=== PATIENT | female | born 1980 | race American Indian/Alaskan Native ===

== ENCOUNTER 2017-12-09 06:49 | Emergency (ER) | payer OTHER ==
[2017-12-09] MEDS ORDERED: ZOFRAN IV ONE (07:21)
[2017-12-09] MEDS ORDERED: NACL 0.9% 1000 ML 1,000 ML IV ONE (07:21)
[2017-12-09 07:52] LABS: Hematocrit 42.3 % (30.3-42.9); Hemoglobin 14.4 gm/dl (10.1-14.3); Mean Corpuscular HGB Conc 34 % (30-34); Mean Corpuscular Hemoglobin 35 pg (28-32); Mean Corpuscular Volume 102 fl (79-97); Platelet Count 309 K/mm3 (140-440); Red Blood Count 4.17 M/mm3 (3.65-5.03); Red Cell Distribution Width 13.9 % (13.2-15.2)
[2017-12-09] MEDS ORDERED: MORPHINE IV ONE ×2 (07:59→10:00)
[2017-12-09 08:13] LABS: Alanine Aminotransferase 19 units/L (7-56); Albumin 4.4 g/dL (3.9-5); BUN/Creatinine Ratio 20; Bilirubin,Direct 0.2 mg/dL (0-0.2); Blood Urea Nitrogen 12 mg/dL (7-17); Calcium 9.5 mg/dL (8.4-10.2); Hemolysis Index 16
[2017-12-09 08:33] LABS: Basophils % (Manual) 0 % (0.0-1.8); Eosinophils % (Manual) 0 % (0.0-4.3); Platelet Estimate Consistent w Auto; RBC Morphology Normal; Total Cells Counted 100
--- NOTE | 2017-12-09 09:56 | Cat Scan Report ---
CT ABDOMEN PELVIS WITH CONTRAST: HISTORY: abdominal pain. COMPARISON: none. TECHNIQUE: Helical CT in 1.25mm intervals following IV contrast. Sagittal and coronal reconstructions. FINDINGS: Lung bases: Normal. Liver: Normal. Biliary system: Normal. Pancreas: Normal. Spleen: Normal. Kidneys/ureters/bladder: Normal. Adrenal glands: Normal. Aorta: Normal. Intestines: Normal. Appendix: Normal. Pelvic viscera: Normal. Ascites: None. Adenopathy: None. Musculoskeletal: Normal. IMPRESSION: Unremarkable CT scan of the abdomen and pelvis with contrast.
[2017-12-09] MEDS ORDERED: MORPHINE ONE (10:38)
[2017-12-09] MEDS ORDERED: REGLAN IV ONE (11:11)
[2017-12-09] MEDS ORDERED: BENTYL IM ONE (11:11)
--- NOTE | 2017-12-09 11:59 | Emergency Department Report ---
Vomiting/Diarrhea - HPI Chief Complaint: Abdominal Pain Stated Complaint: ABD PAIN Time Seen by Provider: 12/09/17 11:06 Duration: 2 Days Severity: moderate Nausea/Vomiting Severity: Moderate Diarrhea Severity: Moderate Pain Location: Generalized Pain Severity: Moderate Symptoms: Yes Watery Diarrhea, No Bloody diarrhea, No Fever, No Able to Tolerate Fluids, No Recent Unusual Foods, No Recent Untreated Water, No Recent use of Antibiotics, No Family w/ Similar Symptoms, No Contacts w/ Similar Symptoms, No Rash, No Hematuria, No Recent URI Symptoms Other History: She is a 37-year-old [place]ese female with no significant past medical history is presenting with nausea vomiting diarrhea. Patient states that this happens occasionally every few years. Patient denies any fever at this time or flulike symptoms. ED Review of Systems ROS: Stated complaint: ABD PAIN Other details as noted in HPI Comment: All other systems reviewed and negative Constitutional: denies: chills, fever Eyes: denies: eye pain, eye discharge, vision change ENT: denies: ear pain, throat pain Respiratory: denies: cough, shortness of breath, wheezing Cardiovascular: denies: chest pain, palpitations Endocrine: no symptoms reported Gastrointestinal: nausea, vomiting, diarrhea. denies: abdominal pain Genitourinary: denies: urgency, dysuria, discharge Musculoskeletal: denies: back pain, joint swelling, arthralgia Skin: denies: rash, lesions Neurological: denies: headache, weakness, paresthesias Psychiatric: denies: anxiety, depression Hematological/Lymphatic: denies: easy bleeding, easy bruising ED Past Medical Hx - Past Medical History Additional medical history: Gastritis - Social History Smoking Status: Never Smoker Substance Use Type: None - Medications Home Medications: Home Medications Medication Instructions Recorded Confirmed Last Taken Type Dicyclomine [Bentyl] 20 mg PO QID #12 tablet 12/09/17 Unknown Rx Diphenoxylate HCl/Atropine 1 each PO DAILY #5 tablet 12/09/17 Unknown Rx [Lomotil 2.5-0.025 mg Tablet] Ondansetron [Zofran Odt] 4 mg PO Q8HR PRN 10 Days 12/09/17 Unknown Rx tab.rapdis Vomiting Diarrhea Exam - Exam General: Vital signs noted. No distress. Alert and acting appropriately. HEENT: Yes Moist Mucous Membranes, No Pharyngeal Erythema, No Pharyngeal Exudates, No Rhinorrhea, No Conjuctival Injection, No Frontal Tenderness, No Maxillary Tenderness Neck: No Adenopathy, No Rigidity Lungs: Yes Clear Lung Sounds, Yes Good Air Exchange, No Wheezes, No Stridor, No Cough, No Nasal Flaring, No Retractions, No Use of Accessory Muscles Heart exam: Regular: Yes, Murmur: No, Tachycardia: No Abdomen: Tenderness: Yes (mild diffuse tenderness there is no rebound or guarding or rigidity), Peritoneal Signs: No, Distention: No, Hyperactive Bowel sounds: No Skin exam: Rash: No, Edema: No, Normal turgor: Yes Neurologic: Alert and oriented, no deficits. Musculoskeletal: Unremarkable. ED Course Vital Signs 12/09/17 12/09/17 07:22 11:30 Temperature 98.3 F 98.8 F Pulse Rate 62 82 Respiratory 18 Rate Blood Pressure 116/44 Blood Pressure 135/61 [Left] O2 Sat by Pulse 100 99 Oximetry ED Medical Decision Making - Lab Data Result diagrams: 12/09/17 07:30 12/09/17 07:30 - Radiology Data Radiology results: report reviewed CT abdomen and pelvis unremarkable - Medical Decision Making Patient was given Zofran and Reglan for nausea which has now improved. Patient was given IV hydration and is feeling better we discharged home. Laboratory studies are unremarkable except for a mild leukocytosis of 16 she most likely secondary to de-margination of the patient was actively vomiting at the time. Blood was drawn Critical care attestation.: If time is entered above; I have spent that time in minutes in the direct care of this critically ill patient, excluding procedure time. ED Disposition Clinical Impression: Viral gastroenteritis Disposition: -01 TO HOME OR SELFCARE Is pt being admited?: No Does the pt Need Aspirin: No Condition: Stable Instructions: Abdominal Pain (ED), Gastroenteritis (ED) Prescriptions: Dicyclomine [Bentyl] 20 mg PO QID #12 tablet Diphenoxylate HCl/Atropine [Lomotil 2.5-0.025 mg Tablet] 1 each PO DAILY #5 tablet Ondansetron [Zofran Odt] 4 mg PO Q8HR PRN 10 Days tab.rapdis PRN Reason: Nausea Referrals: BERNARDO SERRANO MD [Staff Physician] - 3-5 Days
[2017-12-09 13:05] VITALS: BP 107/55
== END 2017-12-09 13:07 | disposition home or self-care (01) ==
LOC: ED 06:49
DX: A08.4 Viral intestinal infection, unspecified (principal)
CPT/HCPCS: 36415; 74177; 80048; 80074; 82150; 83690; 84703; 85007; 85025; 96361; 96372; 96374; 96375; 96376; 99284; J0500; J2270; J2405; J2765; J7030; Q9967

== ENCOUNTER 2018-01-18 00:53 | Inpatient (IN) | payer OTHER ==
[2018-01-18] MEDS ORDERED: ZOFRAN ONE ×2 (01:38→08:31)
[2018-01-18] MEDS ORDERED: ZOFRAN IV ONE (01:40)
[2018-01-18 02:11] LABS: Basophils # (Auto) 0.1 K/mm3 (0.0-0.1); Basophils % (Auto) 0.5 % (0.0-1.8); Eosinophils # (Auto) 0.1 K/mm3 (0.0-0.4); Eosinophils % (Auto) 0.3 % (0.0-4.3); Hematocrit 45.6 % (30.3-42.9); Hemoglobin 15.7 gm/dl (10.1-14.3); Lymphocytes # (Auto) 1.5 K/mm3 (1.2-5.4); Lymphocytes % (Auto) 9.1 % (13.4-35.0); Mean Corpuscular HGB Conc 35 % (30-34); Mean Corpuscular Hemoglobin 34 pg (28-32); Mean Corpuscular Volume 100 fl (79-97); Monocytes # (Auto) 0.9 K/mm3 (0.0-0.8); Monocytes % (Auto) 5.6 % (0.0-7.3); Platelet Count 346 K/mm3 (140-440); Red Blood Count 4.58 M/mm3 (3.65-5.03); Red Cell Distribution Width 13.8 % (13.2-15.2)
[2018-01-18 02:17] LABS: Alanine Aminotransferase 12 units/L (7-56); Albumin 4.5 g/dL (3.9-5); BUN/Creatinine Ratio 10; Blood Urea Nitrogen 7 mg/dL (7-17); Hemolysis Index 16
[2018-01-18] MEDS ORDERED: REGLAN IV ONE (03:13)
[2018-01-18] MEDS ORDERED: BENADRYL IV ONE (03:13)
[2018-01-18] MEDS ORDERED: DILAUDID IV ONE (03:13)
[2018-01-18] MEDS ORDERED: NACL 0.9% 1000 ML 1,000 ML IV ONE (03:14)
[2018-01-18] MEDS ORDERED: PROTONIX IV ONE ×2 (03:15→07:32)
--- NOTE | 2018-01-18 03:23 | Emergency Department Report ---
ED Abdominal Pain HPI - General Chief Complaint: Abdominal Pain Stated Complaint: ABD PAIN/VOMITING Time Seen by Provider: 01/18/18 03:10 Source: patient Mode of arrival: Ambulatory Limitations: No Limitations - History of Present Illness Initial Comments: 37-year-old past medical history of Crohn's and gastritis presents to the hospital with complaint of abdominal pain and vomiting 1 day. Patient complains of constant severe 10/10 sticking stabbing pain to the epigastric with pediatric episodes of vomiting. Patient was evaluated at [facility] ED yesterday and prescribed several medications but unable to keep them down. Patient has had problems with intermittent abdominal pain and vomiting episodes since 1998. Patient will go several years without exacerbations then have years with frequent exacerbations. Her GI doctor Dr. Lima is currently working her up for gastroparesis. Patient had a recent endoscopy and is scheduled for a colonoscopy on the . No reports of fever, melena, diarrhea , hematochezia, or hematemesis. Patient was also here 1 month ago for similar symptoms and had an unremarkable CT abdomen and pelvis at that time. No imaging was performed last night at [place]. She is currently on prednisone, promethazine, omeprazole, and Bentyl as needed for pain. - Related Data Previous Rx's Medication Instructions Recorded Last Taken Type Dicyclomine [Bentyl] 20 mg PO QID #12 tablet 12/09/17 Unknown Rx Diphenoxylate HCl/Atropine 1 each PO DAILY #5 tablet 12/09/17 Unknown Rx [Lomotil 2.5-0.025 mg Tablet] Ondansetron [Zofran Odt] 4 mg PO Q8HR PRN 10 Days 12/09/17 Unknown Rx tab.rapdis Allergies Allergy/AdvReac Type Severity Reaction Status Date / Time No Known Allergies Allergy Unverified 12/09/17 07:20 ED Review of Systems ROS: Stated complaint: ABD PAIN/VOMITING Other details as noted in HPI Comment: All other systems reviewed and negative Other: Constitutional: Positive weight loss secondary to by mouth intolerance Eyes: No eye pain visual changes or discharge ENT: No ear pain or throat pain Neck: Denies pain Respiratory: Denies cough wheezing shortness of breath Cardiovascular: Denies chest pain, palpitations, syncope GI: As per HPI : Denies dysuria Musculoskeletal: Denies back pain, joint swelling Skin: Denies rash, lesions, erythema Neurologic: Denies headache, numbness, weakness Psychiatric: Denies suicidal ideation, hallucinations ED Past Medical Hx - Past Medical History Previous Medical History?: Yes Additional medical history: Gastritis, Crohn's - Surgical History Past Surgical History?: No - Social History Smoking Status: Never Smoker Substance Use Type: None - Medications Home Medications: Home Medications Medication Instructions Recorded Confirmed Last Taken Type Dicyclomine [Bentyl] 20 mg PO QID #12 tablet 12/09/17 Unknown Rx Diphenoxylate HCl/Atropine 1 each PO DAILY #5 tablet 12/09/17 Unknown Rx [Lomotil 2.5-0.025 mg Tablet] Ondansetron [Zofran Odt] 4 mg PO Q8HR PRN 10 Days 12/09/17 Unknown Rx tab.rapdis ED Physical Exam - General Limitations: No Limitations - Other Other exam information: General: Positive distress secondary to pain patient is writhing around the bed Head exam: Atraumatic, normocephalic Eyes exam: Normal appearance, nonicteric sclerae ENT: Moist mucous membrane, normal oropharynx Neck exam: Normal inspection Respiratory exam: Clear to auscultation bilateral, no wheezes, rales, crackles Cardiovascular: Normal rate and rhythm, normal heart sounds Abdomen: Soft, nondistended, upper abdominal tenderness with palpation, no bowel sounds, no rebound or guard Extremity: Full range of motion normal inspection no deformity Back: Normal Inspection, full range of motion, no tenderness Neurologic: Alert, oriented x3, cranial nerves intact, no motor or sensory deficit Psychiatric: Anxious, tearful Skin: Warm, dry, intact ED Course Vital Signs 01/18/18 01/18/18 01:28 05:00 Temperature 98.4 F 98.2 F Pulse Rate 68 82 Respiratory 20 20 Rate Blood Pressure 126/63 Blood Pressure 107/54 [Right] O2 Sat by Pulse 100 100 Oximetry ED Medical Decision Making - Lab Data Result diagrams: 01/18/18 01:37 01/18/18 01:37 Lab Results 01/18/18 01/18/18 01/18/18 Range/Units 01:37 01:37 03:17 WBC 16.8 H (4.5-11.0) K/mm3 RBC 4.58 (3.65-5.03) M/mm3 Hgb 15.7 H (10.1-14.3) gm/dl Hct 45.6 H (30.3-42.9) % MCV 100 H (79-97) fl MCH 34 H (28-32) pg MCHC 35 H (30-34) % RDW 13.8 (13.2-15.2) % Plt Count 346 (140-440) K/mm3 Lymph % (Auto) 9.1 L (13.4-35.0) % [place] % (Auto) 5.6 (0.0-7.3) % Eos % (Auto) 0.3 (0.0-4.3) % Baso % (Auto) 0.5 (0.0-1.8) % Lymph # 1.5 (1.2-5.4) K/mm3 [place] # 0.9 H (0.0-0.8) K/mm3 Eos # 0.1 (0.0-0.4) K/mm3 Baso # 0.1 (0.0-0.1) K/mm3 Seg Neutrophils % 84.5 H (40.0-70.0) % Seg Neutrophils # 14.2 H (1.8-7.7) K/mm3 Sodium 136 L (137-145) mmol/L Potassium 4.3 (3.6-5.0) mmol/L Chloride 97.6 L (98-107) mmol/L Carbon Dioxide 20 L (22-30) mmol/L Anion Gap 23 mmol/L BUN 7 (7-17) mg/dL Creatinine 0.7 (0.7-1.2) mg/dL Estimated GFR > 60 ml/min BUN/Creatinine Ratio 10 % Glucose 107 H (65-100) mg/dL Calcium 10.0 (8.4-10.2) mg/dL Total Bilirubin 0.60 (0.1-1.2) mg/dL AST 17 (5-40) units/L ALT 12 (7-56) units/L Alkaline Phosphatase 70 (35-129) units/L Total Protein 7.6 (6.3-8.2) g/dL Albumin 4.5 (3.9-5) g/dL Albumin/Globulin Ratio 1.5 % HCG, Qual Negative (Negative) - Radiology Data Radiology results: report reviewed Read by radiologist ct abdomen and pelvis IV contrast: No acute findings - Medical Decision Making Patient is repeated negative CAT scans but continues to have significant abdominal pain with vomiting and by mouth intolerance. Patient was just discharged yesterday with by mouth meds was unable to tolerate them. Pain improved with Dilaudid, Benadryl, and Reglan in the ED. IV fluids initiated. Patient will be admitted to the hospital for further treatment and stabilization of symptoms and she failed outpatient treatment. - Differential Diagnosis gastroparesis, gastritis, pancreatitis, hepatitis, biliary colic Critical Care Time: No Critical care attestation.: If time is entered above; I have spent that time in minutes in the direct care of this critically ill patient, excluding procedure time. ED Disposition Clinical Impression: Intractable vomiting, Epigastric pain, Failure of outpatient treatment Disposition: OP ADMIT IP TO THIS HOSP Is pt being admited?: Yes Condition: Stable Time of Disposition: 05:56 (Dr Gann/hosp)
--- NOTE | 2018-01-18 04:38 | Cat Scan Report ---
FINAL REPORT EXAM: CT ABDOMEN PELVIS W CON HISTORY: n,v, epigstric pain TECHNIQUE: CT images are acquired through the Abdomen and Pelvis arterial and delayed phases following intravenous administration of contrast. Transaxial, coronal and sagittal reformations are provided. PRIORS: 12/09/2017 FINDINGS: Partially visualized intrathoracic contents are unremarkable. The liver, gallbladder, pancreas, spleen, and adrenal glands are unremarkable. Kidneys show no worrisome lesions, hydronephrosis, or calculi. The ureters are normal in course and caliber, and are both well opacified on delayed excretory phase imaging. There is no urothelial thickening or ureteral filling defect. Urinary bladder is unremarkable. Small and large bowel are normal in caliber. Appendix is normal. No free air, free fluid, or lymphadenopathy identified. Aorta is normal in course and caliber. Anteverted uterus. Small volume of free fluid in the pelvis is likely physiologic. Superficial soft tissues are unremarkable. No acute or aggressive appearing skeletal findings. IMPRESSION: No acute findings in the abdomen or pelvis.
[2018-01-18] MEDS ORDERED: ZOFRAN ODT PO PRN (07:31)
--- NOTE | 2018-01-18 07:32 | History and Physical Report ---
History of Present Illness Date of examination: 01/18/18 Chief complaint: ABD PAIN, N/V History of present illness: 37-year-old past medical history of Crohn's and gastritis who presents to the hospital with complaint of abdominal pain and vomiting 1 day. Patient complains of constant severe 10/10 sticking stabbing pain to the epigastric with intermittent episodes of vomiting. Patient was evaluated at [facility] ED yesterday and prescribed several medications but unable to keep anything down. Patient has had problems with intermittent abdominal pain and vomiting episodes since 1998. Patient will go several years without exacerbations then have years with frequent exacerbations. Her GI doctor, Dr. Lima, is currently working her up for gastroparesis. Patient had a recent endoscopy and is scheduled for a colonoscopy on the . No reports of fever, melena, diarrhea, hematochezia, or hematemesis. Patient was also here 1 month ago for similar symptoms and had an unremarkable CT abdomen and pelvis at that time. No imaging was performed last night at [place]. She denies hematemesis or hematochezia. No chest pain, shortness of breath. No cough or cold-like symptoms. Past History Past Medical History: other (Crohns, gastritis) Past Surgical History: No surgical history Social history: no significant social history Family history: no significant family history Medications and Allergies Allergies Allergy/AdvReac Type Severity Reaction Status Date / Time No Known Allergies Allergy Unverified 12/09/17 07:20 Home Medications Medication Instructions Recorded Confirmed Last Taken Type Dicyclomine [Bentyl] 20 mg PO QID #12 tablet 12/09/17 Unknown Rx Diphenoxylate HCl/Atropine 1 each PO DAILY #5 tablet 12/09/17 Unknown Rx [Lomotil 2.5-0.025 mg Tablet] Ondansetron [Zofran Odt] 4 mg PO Q8HR PRN 10 Days 12/09/17 Unknown Rx tab.rapdis Active Meds: Active Medications Sodium Chloride (Nacl 0.9% 1000 Ml) 1,000 mls @ 75 mls/hr IV DIRECT JOANN Ondansetron HCl (Zofran) 4 mg IV Q4H PRN PRN Reason: N/V IF NPO AND NO IV ACCESS Review of Systems All systems: negative Exam - Constitutional Vitals: Temp Pulse Resp BP Pulse Ox 98.2 F 82 20 107/54 100 01/18/18 05:00 01/18/18 05:00 01/18/18 05:00 01/18/18 05:00 01/18/18 05:00 General appearance: Present: no acute distress, well-nourished - EENT Eyes: Present: PERRL ENT: hearing intact, clear oral mucosa - Neck Neck: Present: supple, normal ROM - Respiratory Respiratory effort: normal Respiratory: bilateral: CTA - Cardiovascular Heart Sounds: Present: S1 & S2. Absent: rub, click - Extremities Extremities: pulses symmetrical, No edema Peripheral Pulses: within normal limits - Abdominal General gastrointestinal: Present: soft, non-tender, non-distended, normal bowel sounds Female genitourinary: Present: normal - Integumentary Integumentary: Present: clear, warm, dry - Musculoskeletal Musculoskeletal: gait normal, strength equal bilaterally - Psychiatric Psychiatric: appropriate mood/affect, intact judgment & insight - Neurologic Neurologic: CNII-XII intact, moves all extremities Results - Labs CBC & Chem 7: 01/18/18 01:37 01/18/18 01:37 Labs: Laboratory Last Values WBC 16.8 K/mm3 (4.5-11.0) H 01/18/18 01:37 RBC 4.58 M/mm3 (3.65-5.03) 01/18/18 01:37 Hgb 15.7 gm/dl (10.1-14.3) H 01/18/18 01:37 Hct 45.6 % (30.3-42.9) H 01/18/18 01:37 MCV 100 fl (79-97) H 01/18/18 01:37 MCH 34 pg (28-32) H 01/18/18 01:37 MCHC 35 % (30-34) H 01/18/18 01:37 RDW 13.8 % (13.2-15.2) 01/18/18 01:37 Plt Count 346 K/mm3 (140-440) 01/18/18 01:37 Lymph % (Auto) 9.1 % (13.4-35.0) L 01/18/18 01:37 [place] % (Auto) 5.6 % (0.0-7.3) 01/18/18 01:37 Eos % (Auto) 0.3 % (0.0-4.3) 01/18/18 01:37 Baso % (Auto) 0.5 % (0.0-1.8) 01/18/18 01:37 Lymph # 1.5 K/mm3 (1.2-5.4) 01/18/18 01:37 [place] # 0.9 K/mm3 (0.0-0.8) H 01/18/18 01:37 Eos # 0.1 K/mm3 (0.0-0.4) 01/18/18 01:37 Baso # 0.1 K/mm3 (0.0-0.1) 01/18/18 01:37 Seg Neutrophils % 84.5 % (40.0-70.0) H 01/18/18 01:37 Seg Neutrophils # 14.2 K/mm3 (1.8-7.7) H 01/18/18 01:37 Sodium 136 mmol/L (137-145) L 01/18/18 01:37 Potassium 4.3 mmol/L (3.6-5.0) 01/18/18 01:37 Chloride 97.6 mmol/L (98-107) L 01/18/18 01:37 Carbon Dioxide 20 mmol/L (22-30) L 01/18/18 01:37 Anion Gap 23 mmol/L 01/18/18 01:37 BUN 7 mg/dL (7-17) 01/18/18 01:37 Creatinine 0.7 mg/dL (0.7-1.2) 01/18/18 01:37 Estimated GFR > 60 ml/min 01/18/18 01:37 BUN/Creatinine Ratio 10 % 01/18/18 01:37 Glucose 107 mg/dL (65-100) H 01/18/18 01:37 Calcium 10.0 mg/dL (8.4-10.2) 01/18/18 01:37 Total Bilirubin 0.60 mg/dL (0.1-1.2) 01/18/18 01:37 AST 17 units/L (5-40) 01/18/18 01:37 ALT 12 units/L (7-56) 01/18/18 01:37 Alkaline Phosphatase 70 units/L (35-129) 01/18/18 01:37 Total Protein 7.6 g/dL (6.3-8.2) 01/18/18 01:37 Albumin 4.5 g/dL (3.9-5) 01/18/18 01:37 Albumin/Globulin Ratio 1.5 % 01/18/18 01:37 HCG, Qual Negative (Negative) 01/18/18 03:17 Assessment and Plan Assessment and plan: Intractable nausea and vomiting. Continue supportive care with IV fluid hydration. Repeat CT scan of the abdomen and pelvis was negative. If symptoms persist, we will consult GI for further evaluation. Crohn's disease. Continue supportive care. Gastritis. Continue Protonix daily.
[2018-01-18] MEDS ORDERED: BENTYL ONE (08:32)
[2018-01-18] MEDS: ZOFRAN IV PRN ×3 (08:40→19:10)
[2018-01-18] MEDS: BENTYL PO SCH ×5 (08:41→22:32)
[2018-01-18] MEDS: NACL 0.9% 1000 ML 1,000 ML IV SCH ×2 (08:42→23:54)
[2018-01-18] MEDS ORDERED: MORPHINE IV PRN (10:12)
[2018-01-18] MEDS: LOMOTIL PO SCH (12:23)
[2018-01-18 12:31] LABS: Bacteria,Urine 1+ /HPF (Negative); Bilirubin,Urine NEG (Negative); Blood,Urine MOD (Negative); Color,Urine Yellow (Yellow); Mucus,Urine FEW /HPF; Nitrite,Urine NEG (Negative); Protein,Urine <15 mg/dL mg/dL (Negative); Urobilinogen,Urine < 2.0 mg/dL (<2.0)
[2018-01-18] MEDS: MORPHINE IV PRN ×2 (13:02→19:10)
[2018-01-19] MEDS: ZOFRAN IV PRN ×2 (00:18→05:18)
[2018-01-19] MEDS: MORPHINE IV PRN ×2 (00:18→05:18)
--- NOTE | 2018-01-19 09:23 | Discharge Summary ---
Providers - Providers Date of Admission: 01/18/18 06:46 Date of discharge: 01/19/18 Attending physician: VARGAS MILES Primary care physician: SOHEILA WOOD MD Hospitalization Reason for admission: N/V Condition: Stable Hospital course: 37-year-old past medical history of Crohn's and gastritis who presents to the hospital with complaint of abdominal pain and vomiting 1 day prior to admission. Patient complained of constant severe 10/10 sticking stabbing pain to the epigastric with intermittent episodes of vomiting. Pt. was treated with anti-emetics, IVF and protonix with relief. Diet later advanced which she tolerated well. Pt. is undergoing OP w/up with Dr. Juarez for gastroparesis which she will f/u. Discharge time 32 min Disposition: DC-01 TO HOME OR SELFCARE Time spent for discharge: 32 - Discharge Diagnoses (1) Gastritis Status: Acute (2) Epigastric pain Status: Acute (3) Intractable vomiting Status: Acute Core Measure Documentation - Palliative Care Palliative Care/ Comfort Measures: Not Applicable - Core Measures Any of the following diagnoses?: none Exam - Constitutional Vitals: Temp Pulse Resp BP Pulse Ox 98.1 F 55 L 20 112/60 98 01/18/18 22:59 01/18/18 22:59 01/19/18 05:18 01/18/18 22:59 01/18/18 22:59 General appearance: Present: no acute distress, well-nourished - EENT Eyes: Present: PERRL ENT: hearing intact, clear oral mucosa - Neck Neck: Present: supple, normal ROM - Respiratory Respiratory effort: normal Respiratory: bilateral: CTA - Cardiovascular Heart Sounds: Present: S1 & S2. Absent: rub, click - Extremities Extremities: pulses symmetrical, No edema Peripheral Pulses: within normal limits - Abdominal General gastrointestinal: Present: soft, non-tender, non-distended, normal bowel sounds Female genitourinary: Present: normal - Integumentary Integumentary: Present: clear, warm, dry - Musculoskeletal Musculoskeletal: gait normal, strength equal bilaterally - Psychiatric Psychiatric: appropriate mood/affect, intact judgment & insight - Neurologic Neurologic: CNII-XII intact, moves all extremities Plan Activity: no restrictions Weight Bearing Status: Full Weight Bearing Diet: regular Follow up with: SOHEILA WOOD MD [Primary Care Provider] - 7 Days KIKO JUAREZ MD [Staff Physician] - 7 Days Prescriptions: Dicyclomine [Bentyl] 20 mg PO QID #12 tablet Diphenoxylate/Atropine [Lomotil] 1 tab PO DAILY #30 tablet Metoclopramide [Reglan] 10 mg PO TID #30 tab Omeprazole 20 mg PO DAILY #30 capsule. Ondansetron [Zofran TAB] 4 mg PO Q8HR PRN #15 tablet PRN Reason: Nausea And Vomiting
[2018-01-19] MEDS ORDERED: PROTONIX IV SCH (10:00)
[2018-01-19] MEDS: LOMOTIL PO SCH (10:03)
[2018-01-19] MEDS: BENTYL PO SCH ×2 (10:04→15:50)
[2018-01-19 15:56] VITALS: BP 134/76
[2018-01-20] MEDS ORDERED: PROTONIX PO SCH (10:00)
== END 2018-01-19 15:55 | disposition home or self-care (01) | DRG 392 ==
LOC: ED 00:53 → 3A 06:46
PROVIDERS: ADMIT Hospitalist; ATTEND Hospitalist
DX: K29.70 Gastritis, unspecified, without bleeding (principal); K50.90 Crohn's disease, unspecified, without complications; K31.84 Gastroparesis
CPT/HCPCS: 36415; 74177; 80053; 81001; 84703; 85025; 96361; 96374; 96375; C9113; J1170; J1200; J2270; J2405; J2765; J7030; Q9967